=== PATIENT | female | born 1995 | race Caucasian/White ===

== ENCOUNTER 2017-09-29 23:31 | Emergency (ER) | payer OTHER, SELFPAY ==
[2017-09-30 00:02] VITALS: BP 134/89; PULSE 74; RESP 16; TEMP 36.7; O2SAT 99; BMI 40.1
--- NOTE | 2017-09-30 00:11 | DI.RAD.S_ITS ---
PROCEDURE: XR ANKLE LT MIN 3V INDICATIONS: injury 2 weeks ago still pain TECHNIQUE: 3 views of the ankle were acquired. COMPARISON: None. FINDINGS: Bones: No fractures or dislocations. A corticated ossicle distal to the lateral malleolus may be sequelae of old injury. Ankle mortise is normally aligned. No suspicious bony lesions. Soft tissues: No tibiotalar joint effusion. Achilles tendon appears normal. Generalized soft tissue swelling. IMPRESSION: No fracture or dislocation. If clinical symptoms persist or clinical suspicion for pathology is high, a repeat examination in 7-10 days, or advanced imaging such as CT or MRI is suggested for further evaluation. Dictated by: Elsa Aguilar M.D. on 09/30/2017 at 7:26 Approved by: Elsa Aguilar M.D. on 09/30/2017 at 7:28
--- NOTE | 2017-09-30 00:12 | ED.LOWEXIN ---
HPI - Extremity Injury (Lower) General Chief Complaint: Extremity Injury, Lower Stated Complaint: left ankle injury 2 wks ago, swollen,bruised pain Time Seen by Provider: 09/30/17 00:11 Source: patient Mode of arrival: ambulatory Limitations: no limitations History of Present Illness HPI Narrative: The patient is a 22-year-old female who presents with left ankle injury. She injured it 2 weeks ago has not been evaluated. She still has quite a bit of bruising. She has been ambulatory without much difficulty. She denies numbness or tingling. Related Data Allergies Allergy/AdvReac Type Severity Reaction Status Date / Time No Known Drug Allergies Allergy Verified 09/30/17 00:07 Review of Systems Review of Systems GENERAL: Denies chills,fever HEENT: Denies throat pain RESPIRATORY: Denies dyspnea, cough, wheezing CARDIOVASCULAR: Denies chest pain, palpitations GASTROINTESTINAL: Denies nausea, vomiting MUSCULOSKELETAL: See HPI SKIN: No rash, no laceration, no pruritus NEUROLOGIC: Denies weakness, dizziness, headache, numbness 8 point review of systems is negative except for those stated above and HPI Exam Initial Vital Signs Initial Vital Signs: Vital Signs Temperature 98.1 F 09/30/17 00:02 Pulse Rate 74 09/30/17 00:02 Respiratory Rate 16 09/30/17 00:02 Blood Pressure 134/89 H 09/30/17 00:02 Pulse Oximetry 99 09/30/17 00:02 GENERAL: Well-appearing, well-nourished and in no acute distress. CARDIOVASCULAR: peripheral pulses in tact, cap refill <2 sec RESPIRATORY: No respiratory distress, speaks in full sentences without difficulty [ABDOMEN: Soft, nontender, no guarding or rebound] EXTREMITIES: Normal range of motion, no clubbing or edema. Neurovascularly intact Left ankle lateral of bruising and tenderness no gross bony deformities distal pedal pulse intact. NEUROLOGICAL: Cranial nerves II through XII grossly intact. Normal gait and speech. SKIN: Warm, dry, no petechiae, no rashes or lesions. Course Orders Ordered: ED Orders 09/30/17 00:11 XR ankle LT min 3V Stat Vital Signs - 8 hr 09/30/17 00:02 09/30/17 00:50 Temperature 98.1 F 98.2 F Pulse Rate 74 72 Respiratory Rate 16 16 Blood Pressure 134/89 H 130/85 H Pulse Oximetry 99 99 MDM - Extremity Injury (Lower) Imaging Data Left ankle x-ray: Attestation: I personally reviewed and interpreted this imaging study as follows: My impression: No acute process, no fracture, possible bone spur posteriorly Discharge Plan Departure Patient Disposition: Home, Self-Care Clinical Impression: Left ankle sprain Discharge Date/Time: 09/30/17 00:50 Interventions: ED Discharge Assessment Last Done: 09/30/17 00:50 Instructions: Ankle Sprain Activity Restrictions/Additional Instructions: *You have been diagnosed with left ankle sprain *What to do: Increase activity as tolerated, ice and elevate as needed, this can take a few weeks to heal *Continue to take medications as directed *Follow up with your primary care provider in 2-3 days *Return to ER if you should have any new, worsening or concerning symptoms Referrals: [facility] [Provider Group] [facility] [Provider Group]
[2017-09-30 00:50] VITALS: BP 130/85; PULSE 72; RESP 16; TEMP 36.8; O2SAT 99
== END 2017-09-30 00:50 | disposition home or self-care (01) ==
PROVIDERS: Emergency Provider Emergency Medicine
DX: S93.402A Sprain of unspecified ligament of left ankle, initial encounter (principal); W01.0XXA Fall on same level from slipping, tripping and stumbling without subsequent striking against object, initial encounter
CPT/HCPCS: 73610; 99282; 99283

== ENCOUNTER 2019-08-31 11:36 | Emergency (ER) | payer OTHER, SELFPAY ==
--- NOTE | 2019-08-31 11:56 | DI.RAD.S_ITS ---
PROCEDURE: XR ANKLE LT MIN 3V INDICATIONS: fall down two stairs last night TECHNIQUE: 3 views of the ankle were acquired. COMPARISON: 09/29/17. FINDINGS: Bones: No fractures or dislocations. Ankle mortise is normally aligned. No suspicious bony lesions. Soft tissues: No tibiotalar joint effusion. Achilles tendon appears normal. IMPRESSION: No evidence acute bony abnormality of the left ankle. If clinical suspicion and/or symptoms persist, further assessment with repeat plain films, or advanced imaging (e.g., CT, MRI, or bone scan) may be helpful for further assessment. Dictated by: Vitor Mendez M.D. on 08/31/2019 at 11:37 Approved by: Vitor Mendez M.D. on 08/31/2019 at 11:38
[2019-08-31 11:59] VITALS: BP 132/89; PULSE 68; RESP 18; TEMP 36.3; O2SAT 100; BMI 40.1
--- NOTE | 2019-08-31 12:37 | ED_ITS ---
HPI - Extremity Injury (Lower) General Chief Complaint: Extremity Injury, Lower Stated Complaint: left ankle pain/swelling injury last night Time Seen by Provider: 08/31/19 12:11 Source: patient Mode of arrival: Family Vehicle Limitations: no limitations History of Present Illness HPI Narrative: CC:left ankle pain HPI: The patient is a 24-year-old female who states that she was walking down a flight of stairs at home when she lost her footing arm staffed and diet twisted her left ankle. She fell to the floor and stairs. She wrapped her left ankle and came into the emergency department to be evaluated. When she fell she felt and heard a loud snap in her arm ankle. She did not injure her head neck or back. She did not lose any consciousness. The pain and discomfort is 6/10 in intensity. The pain is a dull achy pain that is sometimes sharp. The patient denies a history of a heart murmur hypertension diabetes mellitus but admits to history of asthma. She denies that she smokes cigarettes but drinks alcohol periodically in periodically uses marijuana. Related Data Previous Rx's Medication Instructions Recorded cyclobenzaprine 10 mg PO TID PRN #15 tab 08/31/19 naproxen [Naprosyn] 500 mg PO BID PRN #14 tab 08/31/19 Allergies Allergy/AdvReac Type Severity Reaction Status Date / Time No Known Drug Allergies Allergy Verified 08/31/19 12:03 Review of Systems Review of Systems Narrative: REVIEW OF SYSTEMS: CONSTITUTIONAL: She denies any fever chills or sweats. NEUROLOGICAL: She denies any head injury headache neck pain numbness tingling paresthesias anesthesia is or paresis. EENT: SHe has had no change in vision loss of vision diplopia sore throat trouble swallowing CARDIO-PULMONARY: She denies any chest pain cough shortness of breath difficulty in breathing. HEMOTOLOGICAL: She denies any bruising or bleeding abnormalities. GASTROINTESTINAL: She was not incontinent of stool denies any abdominal pain nausea vomiting diarrhea GENITAL URINARY: She has had no urinary symptoms. There has been no incontinence of urine. MUSCULOSKELETAL/ RHEUMATOLOGICAL: She only complains of pain and discomfort in her left ankle. She has had no back pain neck pain or headache. Patient History Social History Smoking Status: Former smoker Smoking Status: Former smoker alcohol intake frequency: holidays/special occasions only Substance Use Type: marijuana Exam Narrative Exam Narrative: PHYSICAL EXAM: CONSTITUTIONAL: Awake, Alert, Oriented, Coherent, Cooperative in NAD. Does not appear toxic or ill. The patient is morbidly obese HEAD: AT/NC EENT: PERRL, FROM of eyes, no discharge, no nystagmus NECK: Supple, no obvious JVD, Trachea is midline without stridor, no palpable LN. SPINE: Palpationof the cervical, Thoracic, Lumbar or Sacral spine reveals no gross deformity or tenderness. No CVA tenderness. THORAX: No deformity, retractions, chest wall tenderness. LUNGS: Clear, symmetrical breath sounds without respiratory distress. HEART: Normal heart tones, regular rhythm and rate without murmur. ABDOMEN: Soft, non-tender, normal bowel sounds without guarding, rebound, rigidity or palpable mass. EXTREMITIES: The patient's left ankle has been sore wrapped with an Toribio wrap with diffuse swelling of the distal foot. The patient states that she wrapped her own ankle. There is no gross deformity of the ankle. She is tender to palpation over the lateral malleolus and distal malleolus. Is tender to palpation over the talofibular ligament. There is no evidence of any bruising or bleeding at this time. Dorsalis pedis pulse is 1 +. Sensation is within normal limits capillary refill is within normal limits. There is no tenderness or deformity of the left midfoot or of the toes. She has good capillary refill and full range of motion of her toes. NEURO: Awake, alert, oriented, conversive, cranial nerves II-XII are symmetrical , moves all 4 extremities Initial Vital Signs Initial Vital Signs: Vital Signs Temperature 97.3 F L 08/31/19 11:59 Pulse Rate 68 08/31/19 11:59 Respiratory Rate 18 08/31/19 11:59 Blood Pressure 132/89 08/31/19 11:59 Pulse Oximetry 100 08/31/19 11:59 Course Course Course Narrative: 1237: Review of the patient's x-rays myself did not reveal a fracture of the ankle or malleolus. The patient does have some extra calc ifications. Clinically I believe she has a bad sprain. 1310: Radiology revealed that the patient has no acute fracture by their review. Orders Ordered: ED Orders 08/31/19 11:56 XR ankle LT min 3V Stat Discontinued Medications Ketorolac Tromethamine (Toradol) 30 mg IM NOW ONE Stop: 08/31/19 12:35 Last Admin: 08/31/19 13:19 Dose: 30 mg Documented by: DAYNE Vital Signs Vital signs: Vital Signs - 8 hr 08/31/19 11:59 08/31/19 13:22 Temperature 97.3 F L 98.1 F Pulse Rate 68 74 Respiratory Rate 18 16 Blood Pressure 132/89 Blood Pressure [lt foot] 125/82 Pulse Oximetry 100 100 Discharge Plan Departure Patient Disposition: Home Clinical Impression: Ankle sprain and strain Discharge Date/Time: 08/31/19 13:49 Instructions: DI for Ankle Sprain Activity Restrictions/Additional Instructions: 1. Where the splint for your ankle sprain. Follow-up with either your primary care physician or the orthopedic surgeon Dr. Jain. Call their office for a follow-up appointment. 2. As long as it is painful to walk on your ankle use crutches or a walker and do not walk on the ankle. 3. Apply of is to your ankle for 20-30 minutes every 2 hours for the next 48 hours until the swelling goes down. 4. For the pain and discomfort use cyclobenzaprine 10 mg 3 times a day for any muscle spasms and Naprosyn 500 mg twice a day for pain and discomfort. 5. If you develop worsening pain and discomfort you need to return to the emergency department to be re-evaluated. Prescriptions: New cyclobenzaprine 10 mg tablet 10 mg PO TID PRN (Reason: muscle spasm) Qty: 15 RF: 0 naproxen [Naprosyn] 500 mg tablet 500 mg PO BID PRN (Reason: pain) Qty: 14 RF: 0 Stand Alone Forms: Work Release Note
[2019-08-31] MEDS: KETOROLAC 60 MG/2 ML VIAL 30 MG IM (13:19)
[2019-08-31 13:22] VITALS: BP 125/82; PULSE 74; RESP 16; TEMP 36.7; O2SAT 100
== END 2019-08-31 13:49 | disposition home or self-care (01) ==
PROVIDERS: Emergency Provider Emergency Medicine
DX: S93.402A Sprain of unspecified ligament of left ankle, initial encounter (principal); S96.912A Strain of unspecified muscle and tendon at ankle and foot level, left foot, initial encounter; W10.9XXA Fall (on) (from) unspecified stairs and steps, initial encounter
CPT/HCPCS: 73610; 96372; 99283; 99284; J1885

== ENCOUNTER 2019-10-30 17:45 | Emergency (ER) | payer OTHER, SELFPAY ==
[2019-10-30 17:47] VITALS: BP 139/88; PULSE 79; RESP 12; TEMP 36.4; O2SAT 100; BMI 43.9
[2019-10-30 18:21] LABS: Add Manual Diff / Slide Review NO; Basophils Absolute Auto 0 /uL (0-100); Basophils Percent Auto 0.3 % (0-2); Eosinophils Absolute Auto 300 /uL (0-450); Eosinophils Percent Auto 2.7 % (2-4); Hematocrit 43.4 % (36-46); Lymphocytes Absolute Auto 2100 /uL (1100-4500); Lymphocytes Percent Auto 16.9 % (25-40); Mean Corpuscular HGB Conc 32.3 % (30-36); Mean Corpuscular Hemoglobin 29.3 PG (26-34); Mean Corpuscular Volume 90.5 fL (80-100); Monocytes Absolute Auto 500 /uL (0-900); Monocytes Percent Auto 4.1 % (3-14); Neutrophils Absolute Auto 9600 /uL (1500-7000); Platelet Count 265 X10^3/uL (150-400); Red Blood Cell Count 4.79 X10^6/uL (4.0-5.2); Red Cell Distribution Width 12.9 % (11.6-14.8); White Blood Cell Count 12.6 X10^3/uL (4.5-11.0)
--- NOTE | 2019-10-30 18:21 | ED_ITS ---
HPI - Abdominal Pain General Chief Complaint: Abdominal Pain Stated Complaint: NAUSEA VOMITING FEELS LIKE PASSING OUT Time Seen by Provider: 10/30/19 17:57 Source: patient Mode of arrival: Ambulatory Limitations: no limitations History of Present Illness HPI narrative: 24-year-old female former smoker with noncontributory medical history presents with her significant other and a chief complaint of severe epigastric and right upper quadrant pain since yesterday. She states it is much worse when she eats or drinks. She admits to and inability to keep anything down has had persistent vomiting as well. She has been increasingly constipated over the past week or so. Her pain is much worse with eating, palpation and sometimes moving. She denies any fever any point nor any jaundice. She denies the use of alcohol and has never had an abdominal surgery. Her last oral intake was in the waiting room just prior to her coming back. She takes control and states she has a low likelihood of being MD complaint: abdominal pain Onset (ago): hour(s) Pain Consistency: constant Location: RUQ and epigastric Severity: severe Quality: cramping, stabbing and aching Radiation: epigastric and back Relieving factors: nothing Exacerbating factors: eating and movement Associated symptoms: nausea and vomiting Related Data Previous Rx's Medication Instructions Recorded cyclobenzaprine 10 mg PO TID PRN #15 tab 08/31/19 naproxen [Naprosyn] 500 mg PO BID PRN #14 tab 08/31/19 hydrocodone-acetaminophen 1 tab PO Q4-6H PRN #10 tab 10/31/19 ondansetron 4 mg PO TID-QID PRN #10 tab 10/31/19 Allergies Allergy/AdvReac Type Severity Reaction Status Date / Time No Known Drug Allergies Allergy Verified 10/30/19 17:51 Review of Systems Constitutional Constitutional: Denies chills, Denies fatigue, Denies fever(s), Denies frequent falls, Denies lethargy and Denies weakness Eyes Eyes: Denies change in vision, Denies eye discharge, Denies irritation and Denies loss of vision ENT Ears, Nose, Mouth, and Throat: Denies change in voice, Denies dizziness, Denies neck pain, Denies sore throat and Denies throat swelling Cardiovascular Cardiovascular: Denies chest pain, Denies irregular heart rhythm, Denies lightheadedness, Denies palpitations, Denies dyspnea, Denies dyspnea on exertion and Denies orthopnea Respiratory Respiratory: Denies cough, Denies dyspnea, Denies dyspnea on exertion and Denies wheezing Gastrointestinal Gastrointestinal: Reports abdominal pain, Denies change in bowel habits, Denies diarrhea, Reports nausea and Reports vomiting Musculoskeletal Musculoskeletal: Denies neck pain and Denies numbness Integumentary/Breasts Skin/Breast: Denies pruritus, Denies erythema, Denies rash and Denies wounds Neurologic Neurologic: Denies behavioral changes, Denies confusion, Denies dizziness, Denies frequent falls, Denies loss of vision, Denies numbness and Denies weakness Psychiatric Psychiatric: Denies anxiety, Denies behavioral changes, Denies confusion, Denies depression, Denies homicidal ideation and Denies suicidal ideation Endocrine Endocrine: Denies fatigue, Denies flushing and Denies palpitations Hematologic/Lymphatic Hematologic/Lymphatic: Denies easy bruising Allergic/Immunologic Allergic/Immunologic: Denies urticaria, Denies throat swelling and Denies wheezing Patient History Social History Smoking Status: Former smoker Smoking Status: Former smoker alcohol intake frequency: a few times a week Substance Use Type: marijuana Exam Narrative Exam Narrative: GENERAL: [24] year old patient appears stated age. Well- nourished, well-developed patient, in mild distress. HEAD: Atraumatic. Normocephalic. EYES: Pupils equal round and reactive. Extraocular motions intact. No scleral icterus. No injection or drainage. ENT: Nose without bleeding, purulent drainage. Throat without erythema, tonsillar hypertrophy or exudate. Airway patent. NECK: Trachea midline. Non tender CARDIOVASCULAR: Regular rate and rhythm without murmurs, gallops, or rubs. RESPIRATORY: Clear to auscultation. Breath sounds equal bilaterally. No wheezes, rales, or rhonchi. GASTROINTESTINAL: Abdomen soft, severe tenderness in the right upper quadrant and epigastric, nondistended. EXTREMITIES: No edema or joint tenderness. BACK: Nontender without deformity or crepitance. No flank tenderness. NEURO: AOx3. SKIN: No rash or erythema of visible areas Initial Vital Signs Initial Vital Signs: Vital Signs Temperature 97.6 F 10/30/19 17:47 Pulse Rate 79 10/30/19 17:47 Respiratory Rate 12 10/30/19 17:47 Blood Pressure 139/88 10/30/19 17:47 Pulse Oximetry 100 10/30/19 17:47 Course Orders Ordered: ED Orders 10/30/19 17:52 EKG-12 Lead Stat 10/30/19 18:15 Complete Blood Count AUTO DIFF Stat Comprehensive Metabolic Panel Stat Lipase Stat Partial Thromboplastin Time Stat Test Serum,Qual Stat Prothrombin Time INR Stat 10/30/19 20:16 Urine Culture Stat Urine Microscopic Stat 10/30/19 20:52 US abdomen limited Stat 10/30/19 23:20 CT abdomen pelvis w con Stat Discontinued Medications Hydrocodone Bitart/Acetaminophen (Vicodin 5/325 Prepack) 1 bottle MISC SEEINSTR ONE Stop: 10/31/19 00:36 Last Admin: 10/31/19 00:47 Dose: 1 bottle Documented by: MICHELLE Hydromorphone HCl (Dilaudid) 0.5 mg IV NOW ONE Stop: 10/30/19 20:53 Last Admin: 10/30/19 21:28 Dose: 0.5 mg Documented by: LOKI Hydromorphone HCl (Dilaudid) 0.5 mg IV NOW ONE Stop: 10/31/19 00:36 Last Admin: 10/31/19 00:47 Dose: 0.5 mg Documented by: MICHELLE Sodium Chloride (Normal Saline 0.9%) 1,000 mls @ 1,000 mls/hr IV BOLUS ONE Stop: 10/30/19 19:20 Last Infusion: 10/30/19 22:44 Dose: 0 mls/hr Documented by: Admin: 10/30/19 21:27 Dose: 1,000 mls/hr Documented by: LOKI Sodium Chloride (Normal Saline 0.9%) 1,000 mls @ 1,000 mls/hr IV BOLUS ONE Stop: 10/30/19 21:51 Last Admin: 10/30/19 21:28 Dose: Not Given Documented by: LOKI Ondansetron HCl (Zofran) 4 mg IV Q4HR PRN PRN Reason: Nausea And Vomiting Last Admin: 10/30/19 21:28 Dose: 4 mg Documented by: LOKI Ondansetron HCl (Zofran Odt Prepack) 1 bottle MISC SEEINSTR ONE Stop: 10/31/19 00:36 Last Admin: 10/31/19 00:47 Dose: 1 bottle Documented by: MICHELLE Ondansetron HCl (Zofran) 4 mg IV NOW ONE Stop: 10/31/19 00:36 Last Admin: 10/31/19 00:47 Dose: 4 mg Documented by: MICHELLE Vital Signs Vital signs: Vital Signs - 8 hr 10/30/19 22:48 10/30/19 23:00 10/31/19 00:42 Pulse Rate 70 60 57 L Respiratory Rate 12 15 16 Blood Pressure 122/72 112/60 162/93 H Pulse Oximetry 98 98 100 MDM - Abdominal Pain Lab Data Result diagrams: 10/30/19 18:15 10/30/19 18:15 Labs: Lab Results 10/30/19 10/30/19 10/30/19 Range/Units 18:15 18:15 18:15 WBC 12.6 H (4.5-11.0) X10^3/uL RBC 4.79 (4.0-5.2) X10^6/uL Hgb 14.0 (12.0-16.0) g/dL Hct 43.4 (36-46) % MCV 90.5 (80-100) fL MCH 29.3 (26-34) PG MCHC 32.3 (30-36) % RDW 12.9 (11.6-14.8) % Plt Count 265 (150-400) X10^3/uL Neut % (Auto) 76.0 H (50-75) % Lymph % (Auto) 16.9 L (25-40) % [place] % (Auto) 4.1 (3-14) % Eos % (Auto) 2.7 (2-4) % Baso % (Auto) 0.3 (0-2) % Neut # (Auto) 9600 H (5322-5354) /uL Lymph # (Auto) 2100 (0115-4992) /uL [place] # (Auto) 500 (0-900) /uL Eos # (Auto) 300 (0-450) /uL Baso # (Auto) 0 (0-100) /uL PT 13.1 H (10.1-12.7) SECONDS INR 1.1 (0.9-1.3) APTT 39 H (26.4-36.2) SECONDS Sodium 139 (137-145) mmol/L Potassium 3.7 (3.4-5.1) mmol/L Chloride 103 (98-107) mmol/L Carbon Dioxide 27 (22-32) mmol/L BUN 10 (7-17) mg/dL Creatinine 0.72 (0.52-1.04) mg/dL Estimated GFR > 60.0 (>60) mL/min BUN/Creatinine Ratio 13.9 (6-22) Glucose 135 H (70-100) mg/dL Calcium 9.9 (8.4-10.2) mg/dL Total Bilirubin 1.0 (0.2-1.3) mg/dL AST 30 (14-36) IU/L ALT 26 (<35) IU/L Alkaline Phosphatase 89 (38-126) U/L Total Protein 7.8 (6.3-8.2) g/dL Albumin 4.5 (3.5-5.0) g/dL Globulin 3.3 (1.7-4.1) g/dL Albumin/Globulin Ratio 1.4 (1.0-2.8) Lipase 76 (23-300) U/L Serum , Qual (Negative) Urine RBC (0-5/HPF) Urine WBC (0-5/HPF) Ur Squamous Epith Cells (0-5/HPF) Ur Transition Epith Cell (0-5/HPF) Urine Bacteria (None) Ur Culture Indicated? 10/30/19 10/30/19 Range/Units 18:15 20:16 WBC (4.5-11.0) X10^3/uL RBC (4.0-5.2) X10^6/uL Hgb (12.0-16.0) g/dL Hct (36-46) % MCV (80-100) fL MCH (26-34) PG MCHC (30-36) % RDW (11.6-14.8) % Plt Count (150-400) X10^3/uL Neut % (Auto) (50-75) % Lymph % (Auto) (25-40) % [place] % (Auto) (3-14) % Eos % (Auto) (2-4) % Baso % (Auto) (0-2) % Neut # (Auto) (3272-0815) /uL Lymph # (Auto) (2402-9559) /uL [place] # (Auto) (0-900) /uL Eos # (Auto) (0-450) /uL Baso # (Auto) (0-100) /uL PT (10.1-12.7) SECONDS INR (0.9-1.3) APTT (26.4-36.2) SECONDS Sodium (137-145) mmol/L Potassium (3.4-5.1) mmol/L Chloride (98-107) mmol/L Carbon Dioxide (22-32) mmol/L BUN (7-17) mg/dL Creatinine (0.52-1.04) mg/dL Estimated GFR (>60) mL/min BUN/Creatinine Ratio (6-22) Glucose (70-100) mg/dL Calcium (8.4-10.2) mg/dL Total Bilirubin (0.2-1.3) mg/dL AST (14-36) IU/L ALT (<35) IU/L Alkaline Phosphatase (38-126) U/L Total Protein (6.3-8.2) g/dL Albumin (3.5-5.0) g/dL Globulin (1.7-4.1) g/dL Albumin/Globulin Ratio (1.0-2.8) Lipase (23-300) U/L Serum , Qual Negative (Negative) Urine RBC 0-1/hpf (0-5/HPF) Urine WBC 5-10/hpf H (0-5/HPF) Ur Squamous Epith Cells 1-5 /hpf (0-5/HPF) Ur Transition Epith Cell 1-5/hpf (0-5/HPF) Urine Bacteria Many (>30) H (None) Ur Culture Indicated? Specimen cultured Point of care testing: Point of Care Testing Test Results Negative Urine Dip Bedside Urine Glucose Negative Bedside Urine Bilirubin - Negative Bedside Urine Ketone - Negative Urine Specific [place] 1.015 Bedside Urine Occult Blood +/- Bedside Urine pH 6.0 Bedside Urine Protein - Negative Bedside Urine Urobilinogen - Negative Bedside Urine Nitrite + Positive Bedside Urine Leukocytes - Negative Esterase Imaging Data US - abdomen: Radiologist's Impression: NAP CT scan - abdomen/pelvis: Radiologist's Impression: 6.6cm L ovarian cyst MDM Narrative Medical decision making narrative: Multiple etiologies for patient's symptoms considered including: [Gallbladder disease versus appendicitis versus enteritis versus kidney stone versus other] Patient's symptoms improved over duration of stay with above-stated therapies. Findings and discharge diagnosis discussed with patient/family followed by verbalization of understanding Return precautions discussed with patient/family whom verbalize understanding. Discharge Plan Departure Patient Disposition: Home Clinical Impression: Right upper quadrant abdominal pain Discharge Date/Time: 10/31/19 01:11 Instructions: DI for Abdominal Pain-Adult Activity Restrictions/Additional Instructions: *You have been diagnosed with [right upper quadrant pain. Labs, ultrasound and CT were very reassuring regarding surgical emergencies, however you will need follow-up to continue to rule out other causes of your pain] *What to do: *Take medications as directed *Clear liquid diet for 24-48 hours then low fat diet as this could very well be related to a poorly functioning gallbladder *Follow up with your primary care provider in 2-3 days, call for an appointment. Let them know you were seen in the Emergency Department and that we ask that you be seen in follow up *Return to ER if you should have any new, worsening or concerning symptoms Prescriptions: New hydrocodone-acetaminophen 5-325 mg tablet 1 tab PO Q4-6H PRN (Reason: pain) Qty: 10 RF: 0 ondansetron 4 mg tablet,disintegrating 4 mg PO TID-QID PRN (Reason: nausea and vomiting) Qty: 10 RF: 0 No Action cyclobenzaprine 10 mg tablet 10 mg PO TID PRN (Reason: muscle spasm) Qty: 15 RF: 0 naproxen [Naprosyn] 500 mg tablet 500 mg PO BID PRN (Reason: pain) Qty: 14 RF: 0 Referrals: Andrea Palacio MD [Physician] -
[2019-10-30 18:30] LABS: INR 1.1 (0.9-1.3); Prothrombin Time 13.1 SECONDS (10.1-12.7)
[2019-10-30 18:33] LABS: PTT Partial Thromboplastin Tim 39 SECONDS (26.4-36.2)
[2019-10-30 18:36] LABS: Alanine Aminotransferase 26 IU/L (<35); Albumin 4.5 g/dL (3.5-5.0); Albumin Globulin Ratio 1.4 (1.0-2.8); Alkaline Phosphatase 89 U/L (38-126); Aspartate Aminotransferase 30 IU/L (14-36); BUN Creatinine Ratio 13.9 (6-22); Blood Urea Nitrogen 10 mg/dL (7-17); Calcium 9.9 mg/dL (8.4-10.2); Carbon Dioxide 27 mmol/L (22-32); Chloride 103 mmol/L (98-107); Estimated Glomerular Filt Rate > 60.0 mL/min (>60); Globulin 3.3 g/dL (1.7-4.1); Glucose 135 mg/dL (70-100); HEMOLYSIS < 15 (0-50); Lipase 76 U/L (23-300); Potassium 3.7 mmol/L (3.4-5.1); Sodium 139 mmol/L (137-145); Total Protein 7.8 g/dL (6.3-8.2)
[2019-10-30 20:27] LABS: Bacteria Urine Many (>30); Culture Indicated Urine Specimen Cultured; RBC Urine 0-1/HPF (0-5/HPF); Squamous Epithelial Cell Urine 1-5 /HPF (0-5/HPF); Transitional Epi Cells Urine 1-5/HPF (0-5/HPF); WBC Urine 5-10/HPF (0-5/HPF)
--- NOTE | 2019-10-30 20:52 | DI.US.S_ITS ---
PROCEDURE: US ABDOMEN LIMITED INDICATIONS: severe RUQ pain with radiation to back, N/V TECHNIQUE: Real-time focused scanning was performed of the abdomen, with image documentation. COMPARISON: None. FINDINGS: Liver is normal in size. Liver has a diffusely increased echotexture which typically represents fatty infiltration; however, finding is nonspecific and other etiologies including hepatic cirrhosis can have a similar appearance. Please correlate with clinical and laboratory findings. Gallbladder is sonographically normal. No gallstones. No gallbladder wall thickening. Gallbladder wall measures 2.0 millimeters. No pericholecystic fluid. No sonographic Velasco sign. Biliary tree is nondilated. Common bowel duct measures 6.0 millimeters. IMPRESSION: 1. No sonographic evidence of cholelithiasis or cholecystitis. If there is continued clinical concern for cholecystitis, a nuclear medicine HIDA scan should be considered for further evaluation. 2. Echogenic liver. Finding typically represents fatty infiltration; however, finding is nonspecific and correlation with clinical and laboratory findings is recommended to exclude other etiologies including hepatic cirrhosis. Dictated by: Debora Delgado MD, PhD on 10/31/2019 at 7:37 Approved by: Debora Delgado MD, PhD on 10/31/2019 at 7:38
[2019-10-30 21:06] LABS: Pregnancy Test Serum,Qual Negative (Negative)
[2019-10-30] MEDS: SODIUM CHLORIDE 0.9% 1,000 ML 1000 ML IV (21:27)
[2019-10-30] MEDS: HYDROMORPHONE 0.5 MG INJ IV (21:28)
[2019-10-30] MEDS: ONDANSETRON 4 MG/2 ML INJ IV (21:28)
[2019-10-30 22:48] VITALS: BP 122/72; PULSE 70; RESP 12; O2SAT 98
[2019-10-30 23:00] VITALS: BP 112/60; PULSE 60; RESP 15; O2SAT 98
--- NOTE | 2019-10-30 23:20 | DI.CT.S_ITS ---
PROCEDURE: CT ABDOMEN PELVIS W CON INDICATIONS: severe right sided abdominal pain TECHNIQUE: After the administration of intravenous contrast, 5 mm thick sections acquired from the diaphragm to the symphysis. 5 mm coronal and sagittal reformats were acquired. For radiation dose reduction, the following was used: automated exposure control, adjustment of mA and/or kV according to patient size. COMPARISON: None. FINDINGS: Image quality: Excellent. ABDOMEN: Lung bases: Lung bases are clear. Heart size is normal. Solid organs: Liver is normal in size and enhancement. Gallbladder is within normal limits. Biliary system is non dilated. Pancreas enhances normally. Spleen is normal in size and enhancement. No adrenal nodules. Kidneys demonstrate normal size and enhancement, without hydronephrosis. Peritoneum and bowel: Bowel loops demonstrate normal wall thickness and caliber. No free air. Nodes and vessels: No retroperitoneal or mesenteric adenopathy by size criteria. Aorta and inferior vena cava are normal in size. The appendix is normal. Miscellaneous: Small fat containing umbilical hernia. PELVIS: Genitourinary: Bladder wall thickness is normal. Intrauterine device is centrally positioned within the bladder. There is a 6.7 x 5.2 x 5.7 centimeter left adnexal region cyst. 1.7 centimeter right adnexal cyst. Small amount of free fluid noted in the cul-de-sac of the pelvis. Miscellaneous: No inguinal hernias or adenopathy. Bones: No suspicious bony lesions. No vertebral body compression fractures. IMPRESSION: 1. No evidence of appendicitis. 2. 6.7 centimeter left adnexal cyst. Recommend pelvic ultrasound for definitive characterization. Dictated by: Debora Delgado MD, PhD on 10/31/2019 at 7:49 Approved by: Debora Delgado MD, PhD on 10/31/2019 at 7:53
[2019-10-31 00:42] VITALS: BP 162/93; PULSE 57; RESP 16; O2SAT 100
[2019-10-31] MEDS: HYDROMORPHONE 0.5 MG INJ IV (00:47)
[2019-10-31] MEDS: HYDROCODONE/ACET 5/325 PREPACK 1 BOTTLE MISC (00:47)
[2019-10-31] MEDS: ONDANSETRON 4 MG/2 ML INJ IV (00:47)
[2019-10-31] MEDS: ONDANSETRON 4 MG ODT PREPACK 1 BOTTLE MISC (00:47)
== END 2019-10-31 01:11 | disposition home or self-care (01) ==
PROVIDERS: Emergency Provider Emergency Medicine
DX: R10.11 Right upper quadrant pain (principal); R11.2 Nausea with vomiting, unspecified; M54.9 Dorsalgia, unspecified
CPT/HCPCS: 36415; 74177; 76705; 80053; 81003; 81015; 81025; 83690; 84703; 85025; 85610; 85730; 87077; 87086; 87186; 93005; 96361; 96374; 96375; 96376; 99284; J1170; J2405; Q9967